=== PATIENT | female | born 1945 | race American Indian/Alaskan Native ===

== ENCOUNTER 2016-07-05 01:28 | Emergency (ER) | payer SELFPAY ==
[2016-07-05 01:38] VITALS: BP 150/74
[2016-07-05 02:14] LABS: Bilirubin,Urine NEG (Negative); Blood,Urine NEG (Negative); Ketones,Urine NEG (Negative); Leukocyte Esterase,Urine MOD (Negative); Mucus,Urine FEW /HPF; Nitrite,Urine NEG (Negative); Protein,Urine <15 mg/dL mg/dL (Negative); Urobilinogen,Urine < 2.0 mg/dL (<2.0)
[2016-07-05 02:48] LABS: Basophils % (Auto) 0.6 % (0.0-1.8); Eosinophils % (Auto) 1.8 % (0.0-4.3); Hematocrit 38.3 % (30.3-42.9); Hemoglobin 12.3 gm/dl (10.1-14.3); Mean Corpuscular HGB Conc 32 % (30-34); Mean Corpuscular Volume 76 fl (79-97); Platelet Count 318 K/mm3 (140-440); Red Blood Count 5.04 M/mm3 (3.65-5.03); Red Cell Distribution Width 16.3 % (13.2-15.2)
[2016-07-05 03:00] LABS: Mean Corpuscular Hemoglobin 24 pg (28-32)
[2016-07-05 03:07] LABS: Alanine Aminotransferase 16 units/L (7-56); Albumin 4.4 g/dL (3.9-5); Albumin/Globulin Ratio 1.2 %; Alkaline Phosphatase 65 units/L (35-129); Bilirubin,Total 0.2 mg/dL (0.1-1.2); Blood Urea Nitrogen 10 mg/dL (7-17); Calcium 9.1 mg/dL (8.4-10.2); Carbon Dioxide 26 mmol/L (22-30); Chloride 104.2 mmol/L (98-107); Glucose 153 mg/dL (65-100); Lipase 26 units/L (13-60); Potassium 3.9 mmol/L (3.6-5.0); Sodium 144 mmol/L (137-145); Total Protein 8.2 g/dL (6.3-8.2)
[2016-07-05 03:08] LABS: Anion Gap 18 mmol/L
--- NOTE | 2016-07-06 05:13 | ED Elopement Review ---
ED Pt Elopement review - Results review Lab results: Laboratory Tests 07/05/16 07/05/16 07/05/16 01:52 02:32 02:32 WBC 9.0 RBC 5.04 H Hgb 12.3 Hct 38.3 MCV 76 L MCH 24 L MCHC 32 RDW 16.3 H Plt Count 318 Lymph % (Auto) 19.7 [place] % (Auto) 6.8 Eos % (Auto) 1.8 Baso % (Auto) 0.6 Lymph # 1.8 [place] # 0.6 Eos # 0.2 Baso # 0.1 Seg Neutrophils % 71.1 H Seg Neutrophils # 6.4 Sodium 144 Potassium 3.9 Chloride 104.2 Carbon Dioxide 26 Anion Gap 18 BUN 10 Creatinine 0.8 Estimated GFR > 60 BUN/Creatinine Ratio 12.50 Glucose 153 H Calcium 9.1 Total Bilirubin 0.2 AST 33 ALT 16 Alkaline Phosphatase 65 Total Protein 8.2 Albumin 4.4 Albumin/Globulin Ratio 1.2 Lipase 26 Urine Color Yellow Urine Turbidity Clear Urine pH 7.0 Ur Specific [place] 1.015 Urine Protein <15 mg/dl Urine Glucose (UA) Neg Urine Ketones Neg Urine Blood Neg Urine Nitrite Neg Urine Bilirubin Neg Urine Urobilinogen < 2.0 Ur Leukocyte Esterase Mod Urine WBC (Auto) 11.0 H Urine RBC (Auto) 1.0 U Epithel Cells (Auto) 1.0 Amorphous Crystals Few Urine Mucus Few - Call Back decision Pt Call Back Decision: No action required
== END 2016-07-05 04:43 | disposition left against medical advice (07) ==
LOC: ED 01:28
DX: R10.30 Lower abdominal pain, unspecified (principal); R11.2 Nausea with vomiting, unspecified; Z53.21 Procedure and treatment not carried out due to patient leaving prior to being seen by health care provider
CPT/HCPCS: 36415; 80053; 81001; 83690; 85025